=== PATIENT | male | born 1955 | race Hispanic/Latino ===

== ENCOUNTER 2018-02-23 11:00 | Inpatient (IN) | payer BC ==
[~2018-02-23] VITALS: Ht 172.7 cm; Wt 101.1 kg
[2018-03-28 12:48] VITALS: BP 140/66
[2018-03-29] VITALS (32 sets, daily range): BP systolic 71–174; BP diastolic 38–113
[2018-03-29] MEDS: CLINDAMYCIN 900 MG/D5% WATER 50 ML IV SCH ×4 (05:00→22:26)
[2018-03-29] MEDS: GENTAMICIN 80 MG/NS 100 ML PB 100 ML IV SCH ×3 (05:00→16:36)
[2018-03-29] MEDS ORDERED: LACTATED RINGERS 1000ML 1,000 ML IV ONE (06:11)
[2018-03-29] MEDS ORDERED: TYL3 PO ×2 (06:30→20:53)
[2018-03-29] MEDS ORDERED: ATOR40TA71 PO (06:30)
[2018-03-29] MEDS ORDERED: LISI1TAB9 PO (06:30)
[2018-03-29] MEDS ORDERED: ROPIVACAINE 0.5% 5MG/ML 30ML IJ ONE ×2 (07:19→10:34)
[2018-03-29] MEDS ORDERED: PROPOFOL 10 MG/ML 20ML VIAL IV ONE (07:21)
[2018-03-29] MEDS ORDERED: MIDAZOLAM HCL 1 MG/ML 2ML VIAL ONE (07:21)
[2018-03-29] MEDS ORDERED: FENTANYL CITRATE PF 50 MCG/1 ML 2ML VIAL ONE ×4 (07:22→09:42)
[2018-03-29] MEDS ORDERED: SODIUM CHLORIDE 0.9% 10 ML VIAL ONE (08:40)
[2018-03-29] MEDS ORDERED: NEOSTIGMINE 5MG/5ML SYR IV ONE (08:40)
[2018-03-29] MEDS ORDERED: ROCURONIUM BROMIDE 10MG/1ML 5ML VL ONE (08:40)
[2018-03-29] MEDS ORDERED: PHENYLEPHRINE HCL 10 MG/ML 1ML VIAL IV ONE (08:40)
[2018-03-29] MEDS ORDERED: ONDANSETRON HCL 4 MG/2 ML VIAL ONE (08:40)
[2018-03-29] MEDS: BACITRACIN IRRIG SCH (08:43)
[2018-03-29] MEDS: [UNRECOGNIZED DRUG - OTHER] IRRIG SCH (08:43)
[2018-03-29] MEDS: POLYMYXIN B SULFATE IRRIG SCH (08:43)
[2018-03-29] MEDS ORDERED: PROMETHAZINE HCL 25 MG/ML 1ML AMPULE IM ONE (10:06)
[2018-03-29] MEDS ORDERED: MEPERIDINE-PF 25 MG/ML SYG ONE (10:06)
[2018-03-29] MEDS ORDERED: HYDROMORPHONE HCL 0.5 MG/0.5 ML ML ONE (10:07)
[2018-03-29 10:47] LABS: HEMATOCRIT 36.7 % (42-54)
[2018-03-29] MEDS ORDERED: MAGNESIUM HYDROXIDE 30 ML/UDCUP PO PRN (12:15)
[2018-03-29] MEDS ORDERED: LACTATED RINGERS 1000ML 1,000 ML IV SCH (12:15)
[2018-03-29] MEDS ORDERED: BISACODYL 10 MG SUPP.RECT RC PRN (12:15)
[2018-03-29] MEDS ORDERED: PROMETHAZINE HCL 25 MG/ML 1ML AMPULE IM PRN (12:15)
[2018-03-29] MEDS ORDERED: MORPHINE SULFATE 10 MG/ML 1ML SYG IM PRN (12:15)
[2018-03-29] MEDS ORDERED: MORPHINE SULFATE 4 MG/1ML SYG ONE (13:24)
[2018-03-29] MEDS: ACETAMINOPHEN 325 MG TAB PO PRN (17:03)
[2018-03-29 18:11] LABS: HEMATOCRIT 36.9 % (42-54)
[2018-03-29] MEDS ORDERED: KETOROLAC TROMETHAMINE 30MG/ML ONE (20:46)
[2018-03-29] MEDS ORDERED: ACETAMINOPHEN-CODEINE 300/30MG TAB PO PRN (21:00)
[2018-03-29] MEDS: ATORVASTATIN CALCIUM 40 MG TABLET PO SCH (22:26)
[2018-03-30] VITALS: BP 135/86
[2018-03-30] MEDS: GENTAMICIN 80 MG/NS 100 ML PB 100 ML IV SCH
[2018-03-30] MEDS ORDERED: GENTAMICIN SULFATE 80 MG/2 ML VIAL ONE (00:19)
[2018-03-30 00:24] LABS: HEMATOCRIT 34.9 % (42-54)
[2018-03-30 04:00] VITALS: BP 149/85
[2018-03-30 04:52] LABS: HEMATOCRIT 34.6 % (42-54); MEAN CORPUSCULAR HEMOGLOBIN 27.6 pg (27.0-33.0); MEAN CORPUSCULAR HGB CONC 34.1 g/dL (32.0-36.0); MEAN CORPUSCULAR VOLUME 80.9 fL (79-99); PLATELET COUNT (AUTO) 139 K/uL (130-400); RED BLOOD CELL COUNT(AUTO) 4.28 MIL/uL (4.50-6.20); RED CELL DISTRIBUTION WIDTH 16.5 % (11.0-15.5); WHITE BLOOD COUNT (AUTO) 7.3 K/uL (4.8-10.8)
[2018-03-30 05:03] LABS: LYMPHOCYTES % (MANUAL) 26 % (22-44); MAN.DIFF COMMENT-IMPRESSION MANUAL DIFFERENTIAL; MONOCYTES % (MANUAL) 8 % (2-9); SEGMENTED NEUTROPHILS % 66 % (40-70)
[2018-03-30 05:04] LABS: CREATININE 1.3 mg/dL (0.5-1.5); PLATELET MORPHOLOGY COMMENT ADEQUATE; POTASSIUM 3.9 mmol/L (3.5-5.1)
[2018-03-30 07:30] VITALS: BP 151/90
[2018-03-30] MEDS: KETOROLAC TROMETHAMINE 30MG/ML IV PRN ×2 (08:34→23:59)
[2018-03-30] MEDS: HYDROCHLOROTHIAZIDE 25 MG TABLET PO SCH (08:34)
[2018-03-30] MEDS: LISINOPRIL 10 MG TABLET PO SCH (08:35)
[2018-03-30] MEDS: ACETAMINOPHEN-CODEINE 300/30MG TAB PO PRN ×2 (10:05→15:07)
[2018-03-30 11:00] VITALS: BP 133/74
[2018-03-30 16:00] VITALS: BP 130/69
[2018-03-30 20:00] VITALS: BP 131/76
[2018-03-30] MEDS: ENOXAPARIN SODIUM 40 MG/0.4 ML SYRINGE SQ SCH (21:05)
[2018-03-30] MEDS: ATORVASTATIN CALCIUM 40 MG TABLET PO SCH (21:05)
[2018-03-30] MEDS: ACETAMINOPHEN 325 MG TAB PO PRN (23:56)
[2018-03-31] VITALS: BP 128/76
[2018-03-31 04:47] LABS: BASOPHILS % (AUTO) 0.2 % (0.0-5.0); EOSINOPHILS % (AUTO) 2.6 % (0.0-8.0); HEMATOCRIT 31.4 % (42-54); LYMPHOCYTES % (AUTO) 18.3 % (21.0-51.0); MEAN CORPUSCULAR HEMOGLOBIN 28.5 pg (27.0-33.0); MEAN CORPUSCULAR HGB CONC 35.1 g/dL (32.0-36.0); MEAN CORPUSCULAR VOLUME 81.2 fL (79-99); MONOCYTES % (AUTO) 7.6 % (3.0-13.0); NEUTROPHILS % (AUTO) 71.3 % (40.0-77.0); NUCLEATED RED BLOOD CELLS 0.1 % (0.0-0.19); PLATELET COUNT (AUTO) 142 K/uL (130-400); RED BLOOD CELL COUNT(AUTO) 3.87 MIL/uL (4.50-6.20); RED CELL DISTRIBUTION WIDTH 16.5 % (11.0-15.5); WHITE BLOOD COUNT (AUTO) 7.1 K/uL (4.8-10.8)
[2018-03-31 05:01] LABS: CREATININE 1.3 mg/dL (0.5-1.5); POTASSIUM 3.9 mmol/L (3.5-5.1)
[2018-03-31 08:25] VITALS: BP 126/72
[2018-03-31] MEDS: HYDROCHLOROTHIAZIDE 25 MG TABLET PO SCH (09:38)
[2018-03-31] MEDS: LISINOPRIL 10 MG TABLET PO SCH (09:38)
[2018-03-31] MEDS: ENOXAPARIN SODIUM 40 MG/0.4 ML SYRINGE SQ SCH (09:39)
[2018-03-31] MEDS: ACETAMINOPHEN-CODEINE 300/30MG TAB PO PRN (09:39)
[2018-03-31 12:00] VITALS: BP 133/66
[2018-03-31 15:35] LABS: APPEARANCE,URINE Clear (CLEAR); BILIRUBIN,URINE Negative (NEGATIVE); COLOR,URINE Yellow (YELLOW); GLUCOSE, URINE (UA) Negative (NEGATIVE); KETONES,URINE Negative (NEGATIVE); LEUKOCYTE ESTERASE ,URINE Small (NEGATIVE); NITRATE,URINE Negative (NEGATIVE); OCCULT BLOOD,URINE Moderate (NEGATIVE); PROTEIN,URINE Negative (NEGATIVE)
[2018-03-31 15:44] LABS: BACTERIA,URINE Few /HPF (None Seen); WBC,URINE 0-1 /HPF (0-1)
[2018-03-31 15:45] LABS: MUCUS,URINE Few LPF (None Seen)
[2018-03-31 16:00] VITALS: BP 118/71
[2018-03-31] MEDS: LEVOFLOXACIN 500 MG/D5W 100 ML 100 ML IV SCH (16:40)
[2018-03-31] MEDS: WARFARIN SODIUM 5 MG TAB PO SCH (16:40)
[2018-03-31 20:12] VITALS: BP 124/68
[2018-03-31] MEDS: ATORVASTATIN CALCIUM 40 MG TABLET PO SCH (21:53)
[2018-03-31] MEDS: KETOROLAC TROMETHAMINE 30MG/ML IV PRN (21:54)
[2018-04-01 00:12] VITALS: BP 125/78
[2018-04-01 03:59] LABS: BASOPHILS % (AUTO) 0.3 % (0.0-5.0); LYMPHOCYTES % (AUTO) 20.7 % (21.0-51.0); MEAN CORPUSCULAR HGB CONC 34.9 g/dL (32.0-36.0); MEAN CORPUSCULAR VOLUME 80.3 fL (79-99); MONOCYTES % (AUTO) 10.2 % (3.0-13.0); NEUTROPHILS % (AUTO) 64.8 % (40.0-77.0); PLATELET COUNT (AUTO) 142 K/uL (130-400); RED BLOOD CELL COUNT(AUTO) 3.74 MIL/uL (4.50-6.20); RED CELL DISTRIBUTION WIDTH 16.6 % (11.0-15.5); WHITE BLOOD COUNT (AUTO) 6.2 K/uL (4.8-10.8)
[2018-04-01 04:09] LABS: CREATININE 1.4 mg/dL (0.5-1.5); POTASSIUM 3.7 mmol/L (3.5-5.1)
[2018-04-01 04:12] VITALS: BP 111/73
[2018-04-01 07:45] VITALS: BP 147/77
[2018-04-01] MEDS: ENOXAPARIN SODIUM 40 MG/0.4 ML SYRINGE SQ SCH (09:30)
[2018-04-01] MEDS: HYDROCHLOROTHIAZIDE 25 MG TABLET PO SCH (09:31)
[2018-04-01] MEDS: LISINOPRIL 10 MG TABLET PO SCH (09:31)
[2018-04-01 10:06] LABS: INR 0.93 (0.85-1.15); PROTHROMBIN TIME 9.8 SEC (9.6-11.6)
[2018-04-01 12:00] VITALS: BP 130/69
[2018-04-01] MEDS ORDERED: WARF5TAB76 PO ×2 (12:24→12:31)
[2018-04-01] MEDS ORDERED: TYL3 PO (12:24)
[2018-04-01] MEDS ORDERED: LEVO500T2 PO (12:24)
[2018-04-01] MEDS ORDERED: TRAM50TA2 PO (12:24)
[2018-04-01] MEDS ORDERED: PANT40TA PO (12:25)
[2018-04-01] MEDS: LEVOFLOXACIN 500 MG/D5W 100 ML 100 ML IV SCH (15:11)
[2018-04-01] MEDS: WARFARIN SODIUM 5 MG TAB PO SCH (15:12)
== END 2018-04-01 17:50 | disposition home or self-care (01) | DRG 470 ==
LOC: EDSTATUS 11:00 → DAHIP 03-29 06:00 → 4BH 03-29 11:59
PROC: 0SRC0JA Replacement of Right Knee Joint with Synthetic Substitute, Uncemented, Open Approach (ICD-10-PCS; principal; 2018-03-29 07:25)
DX: M17.0 Bilateral primary osteoarthritis of knee (principal); M21.161 Varus deformity, not elsewhere classified, right knee; I10 Essential (primary) hypertension; E78.00 Pure hypercholesterolemia, unspecified; E11.9 Type 2 diabetes mellitus without complications; E66.9 Obesity, unspecified; F32.9 Major depressive disorder, single episode, unspecified; G47.30 Sleep apnea, unspecified; I11.9 Hypertensive heart disease without heart failure; N19 Unspecified kidney failure; Z68.33 Body mass index [BMI] 33.0-33.9, adult
CPT/HCPCS: 36415; 73560; 80048; 80170; 81001; 82948; 85014; 85018; 85025; 85610; 86850; 86900; 86901; 86922; 87040; 87088; 87186; 88305; 88311; 94760; 97039; A4218; A4344; A4606; J1170; J1580; J1650; J1885; J1956; J2175; J2250; J2270; J2370; J2405; J2550; J2704; J2710; J2795; J3010; J3490; J7120

== ENCOUNTER → 2021-01-15 | Outpatient (CLI) | payer MEDICARE ==
[~2021-01-15] MED LIST: ATOR40TA71 PO; LEVO500T2 PO; LISI1TAB32 PO; PANT40TA PO; TRAM50TA2 PO; TYL3 PO; WARF5TAB PO
== END | disposition home or self-care (01) ==
LOC: RAH 08:03
PROVIDERS: ATTEND Family Medicine
DX: K42.9 Umbilical hernia without obstruction or gangrene (principal); K56.699 Other intestinal obstruction unspecified as to partial versus complete obstruction; R16.0 Hepatomegaly, not elsewhere classified
CPT/HCPCS: 76700

== ENCOUNTER 2021-01-25 14:08 | Emergency (ER) | payer MEDICARE ==
[2021-01-25] MEDS ORDERED: HYDROCODONE/ACETAMINOPHEN 10/325 MG TAB ONE (14:28)
[2021-01-25 14:56] LABS: BASOPHILS % (AUTO) 0.6 % (0.0-5.0); EOSINOPHILS % (AUTO) 2.2 % (0.0-8.0); HEMATOCRIT 40.7 % (42-54); LYMPHOCYTES % (AUTO) 9.2 % (21.0-51.0); MEAN CORPUSCULAR HEMOGLOBIN 28.1 pg (27.0-33.0); MEAN CORPUSCULAR HGB CONC 33.7 g/dL (32.0-36.0); MEAN CORPUSCULAR VOLUME 83.6 fL (79-99); MONOCYTES % (AUTO) 6.7 % (3.0-13.0); NEUTROPHILS % (AUTO) 79.2 % (40.0-77.0); PLATELET COUNT (AUTO) 270 K/uL (130-400); RED BLOOD CELL COUNT(AUTO) 4.87 MIL/uL (4.50-6.20); RED CELL DISTRIBUTION WIDTH 14.3 % (11.0-15.5); WHITE BLOOD COUNT (AUTO) 13.2 K/uL (4.8-10.8)
[2021-01-25 15:02] LABS: CREATININE 1.4 mg/dL (0.5-1.5); POTASSIUM 3.6 mmol/L (3.5-5.1)
[2021-01-25 15:07] LABS: ALBUMIN 2.6 g/dL (3.5-5.0); BILIRUBIN,TOTAL 0.5 mg/dL (0.2-1.0); TOTAL PROTEIN, SERUM 7.5 g/dL (6.0-8.3)
[2021-01-25] MEDS ORDERED: CLINDAMYCIN 600 MG/D5% WATER 50 ML IV ONE (15:14)
[2021-01-25] MEDS ORDERED: SODIUM CHLORIDE 0.9% 1000ML 1,000 ML IV ONE (15:14)
== END 2021-01-25 16:24 | disposition home or self-care (01) ==
LOC: EDH 14:08
DX: L02.31 Cutaneous abscess of buttock (principal); I10 Essential (primary) hypertension; E78.00 Pure hypercholesterolemia, unspecified; Z88.0 Allergy status to penicillin; Z87.891 Personal history of nicotine dependence
CPT/HCPCS: 36415; 80053; 82948; 83605; 85025; 87070; 87076; 87077 ×2; 87186 ×2; 96365; 99284; J3490; J7030

== ENCOUNTER → 2022-02-05 | Outpatient (CLI) | payer OTHER ==
[~2022-02-05] MED LIST changes: +LIDOCAINE HCL 4% LTA SOL 4 ML VIAL TP ONE; -LISI1TAB32 PO; +LISI1TAB49 PO
== END | disposition home or self-care (01) ==
LOC: WHH 10:11
PROVIDERS: ATTEND Family Medicine
DX: L02.31 Cutaneous abscess of buttock (principal); S31.829A Unspecified open wound of left buttock, initial encounter; S31.819A Unspecified open wound of right buttock, initial encounter; E11.628 Type 2 diabetes mellitus with other skin complications; E78.2 Mixed hyperlipidemia; E78.00 Pure hypercholesterolemia, unspecified; I10 Essential (primary) hypertension; E66.01 Morbid (severe) obesity due to excess calories; Z68.27 Body mass index [BMI] 27.0-27.9, adult; Z88.0 Allergy status to penicillin; Z87.891 Personal history of nicotine dependence; X58.XXXA Exposure to other specified factors, initial encounter; Y93.89 Activity, other specified; Y92.89 Other specified places as the place of occurrence of the external cause; Y99.8 Other external cause status
CPT/HCPCS: G0463

== ENCOUNTER → 2022-02-12 | Outpatient (CLI) | payer OTHER ==
[~2022-02-12] MED LIST changes: +IOHEXOL-350 50ML VIAL IV ONE; +LIDOCAINE HCL 2% VISCOUS 15 ML UDCUP ONE; -LIDOCAINE HCL 4% LTA SOL 4 ML VIAL TP ONE
== END | disposition home or self-care (01) ==
LOC: RAH 09:23
PROVIDERS: ATTEND Family Medicine
DX: L02.32 Furuncle of buttock (principal)
CPT/HCPCS: 72192; 76080; Q9967

== ENCOUNTER → 2022-03-10 | Outpatient (CLI) | payer OTHER ==
[~2022-03-10] MED LIST changes: -IOHEXOL-350 50ML VIAL IV ONE; -LIDOCAINE HCL 2% VISCOUS 15 ML UDCUP ONE; +LIDOCAINE HCL 4% LTA SOL 4 ML VIAL TP ONE
== END | disposition home or self-care (01) ==
LOC: WHH 08:22
PROVIDERS: ATTEND Family Medicine
DX: L02.31 Cutaneous abscess of buttock (principal); S31.829D Unspecified open wound of left buttock, subsequent encounter; E11.628 Type 2 diabetes mellitus with other skin complications; E78.2 Mixed hyperlipidemia; E78.00 Pure hypercholesterolemia, unspecified; I10 Essential (primary) hypertension; E66.01 Morbid (severe) obesity due to excess calories; Z68.27 Body mass index [BMI] 27.0-27.9, adult; Z88.0 Allergy status to penicillin; Z87.891 Personal history of nicotine dependence; X58.XXXD Exposure to other specified factors, subsequent encounter
CPT/HCPCS: G0463

== ENCOUNTER → 2024-03-13 | Outpatient (CLI) | payer OTHER ==
[~2024-03-13] MED LIST changes: -LIDOCAINE HCL 4% LTA SOL 4 ML VIAL TP ONE
[2024-03-13] MEDS: REGADENOSON 0.4 MG/5 ML PF SYG IVP ONE (11:25)
== END | disposition home or self-care (01) ==
LOC: SHCH 09:07
PROVIDERS: ATTEND Internal Medicine Cardiovascular Disease
DX: Z01.810 Encounter for preprocedural cardiovascular examination (principal); E78.5 Hyperlipidemia, unspecified
CPT/HCPCS: 78452; 96374; 93017; J2785; A9500 ×2